=== PATIENT | female | born 2000 | race Caucasian/White ===

== ENCOUNTER 2018-09-17 12:28 | Emergency (ER) | payer BC ==
[2018-09-17] MEDS ORDERED: ACETAMINOPHEN 500 MG TABLET (FP) PO ONE (12:43)
[2018-09-17] MEDS ORDERED: ACETAMINOPHEN 325 MG TABLET (FP) PO ONE (12:43)
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
[2018-09-17 12:59] VITALS: BP 122/67; PULSE 71; TEMP 98.2; BMI 29.8
[2018-09-17] MEDS ORDERED: ACETAMINOPHEN 325 MG TABLET (FP) ONE (13:13)
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
== END 2018-09-17 14:07 | disposition home or self-care (01) ==
LOC: JERFT 12:28
DX: O99.89 Other specified diseases and conditions complicating pregnancy, childbirth and the puerperium (principal); M25.512 Pain in left shoulder; M54.89 Other dorsalgia; V49.59XA Passenger injured in collision with other motor vehicles in traffic accident, initial encounter; Y92.488 Other paved roadways as the place of occurrence of the external cause; Y93.89 Activity, other specified; Y99.8 Other external cause status; Z3A.01 Less than 8 weeks gestation of pregnancy
CPT/HCPCS: 99282-25